=== PATIENT | male | born 1960 | race Caucasian/White ===

== ENCOUNTER 2022-06-16 14:12 | Outpatient (CLI) | payer BC, SELFPAY ==
[2022-06-16 13:59] LABS: Albumin* 4.1 g/dL (3.3-5.0)
[2022-06-16 14:00] LABS: Chloride* 112 mmol/L (96-114); Potassium* 3.8 mmol/L (3.6-5.1); Sodium* 145 mmol/L (135-149)
[2022-06-16 14:02] LABS: Aspartate Amino Transferase* 31 U/L (12-35); Bilirubin Total* 0.7 mg/dL (0.1-1.5); Carbon Dioxide* 26 mmol/L (20-32); Creatinine* 0.9 mg/dL (0.5-1.5); Estimated Glomerular Filt Rate 95 ml/min
[2022-06-16 14:03] LABS: Alanine Aminotransferase* 35 U/L (4-50); Alkaline Phosphatase* 76 U/L (40-150); Blood Urea Nitrogen* 18 mg/dL (7-30); Calcium* 9.4 mg/dL (8.4-10.6); Glucose* 107 mg/dL (60-115); HDL Cholesterol* 40 mg/dL (>=40); Total Protein* 6.8 g/dL (6.0-8.3); Triglycerides* 179 mg/dL (40-149)
[2022-06-16 15:17] LABS: Cholesterol* 110 mg/dL (90-199); LDL Cholesterol Calculated 34 mg/dL (<100)
[2022-06-16 15:48] LABS: Creatinine Urine 224.6 mg/dL
[2022-06-16 15:51] LABS: Microalbumin Creatinine Ratio 20 mg/g (0-30); Microalbumin Urine 5 mg/dL
== END 2022-06-16 14:13 | disposition home or self-care (01) ==
PROVIDERS: PCP Physician Assistant Medical; Visit Provider Physician Assistant Medical
DX: E11.9 Type 2 diabetes mellitus without complications (principal); E78.5 Hyperlipidemia, unspecified; I10 Essential (primary) hypertension; N18.9 Chronic kidney disease, unspecified
CPT/HCPCS: 80053; 80061; 82043; 82570

== ENCOUNTER 2023-06-21 07:20 | Outpatient (CLI) | payer BC, SELFPAY | END 2023-06-21 07:21 | disposition home or self-care (01) | LOC: NFLDREF 06-22 06:13 | PROVIDERS: PCP Physician Assistant Medical; Referring Provider Physician Assistant Medical; Visit Provider Physician Assistant Medical | DX: E11.9 Type 2 diabetes mellitus without complications (principal); Z12.5 Encounter for screening for malignant neoplasm of prostate; E78.5 Hyperlipidemia, unspecified; I10 Essential (primary) hypertension | CPT/HCPCS: 80053; 80061; 82043; 82570; G0103 ==

== ENCOUNTER 2024-07-23 07:23 | Outpatient (CLI) | payer BC, SELFPAY | END 2024-07-23 07:24 | disposition home or self-care (01) | LOC: NFLDREF 07-27 03:06 | PROVIDERS: PCP Physician Assistant Medical; Referring Provider Physician Assistant Medical; Visit Provider Physician Assistant Medical | DX: E11.22 Type 2 diabetes mellitus with diabetic chronic kidney disease (principal); N18.1 Chronic kidney disease, stage 1; E78.2 Mixed hyperlipidemia; I10 Essential (primary) hypertension; G47.33 Obstructive sleep apnea (adult) (pediatric); E66.01 Morbid (severe) obesity due to excess calories; Z79.4 Long term (current) use of insulin | CPT/HCPCS: 80053; 80061; 82043; 82570 ==